=== PATIENT | female | born 1985 | race Caucasian/White ===

== ENCOUNTER 2017-11-18 17:41 | Emergency (ER) | payer OTHER ==
[~2017-11-18] VITALS: Ht 152.4 cm; Wt 58.1 kg
[~2017-11-18 17:41] MED LIST: ACETAMINOPHEN-1 EAC1 PO; ALEVE220 MG PO; BACTRIM DS TAB1 EACH PO; CEPHALEXIN500 MG PO; CLONIDINE HCL0.2 MG PO; ESTRADIOL1 EACH TD; FLOMAX0.4 MG PO; FLUOXETINE HCL20 MG PO; IBUPROFEN800 MG PO; MELATONIN10 M2 PO; NORCO 5-325 TA1 EACH PO; OMEPRAZOLE20 MG PO; PENICILLIN V P500 MG PO; PERCOCET 5-3251 EACH PO; PREMARIN1.25 MG PO; PYRIDIUM200 MG PO; SUBOXONE 8 MG-1 EAC1 SL; ULTRAM50 MG PO; ZOFRAN ODT8 MG PO; ZOFRAN4 MG PO
[2017-11-18] MEDS ORDERED: ACYCLOVIR400 MG PO (18:12)
[2017-11-18] MEDS ORDERED: AUGMENTIN 875-1 EACH PO (18:43)
[2017-11-18] MEDS ORDERED: LIDOCAINE HCL100 ML MT (18:43)
== END 2017-11-18 18:58 | disposition home or self-care (01) ==
LOC: ED 17:41
DX: K13.0 Diseases of lips (principal); K21.9 Gastro-esophageal reflux disease without esophagitis; F17.200 Nicotine dependence, unspecified, uncomplicated; Z88.8 Allergy status to other drugs, medicaments and biological substances; Z79.899 Other long term (current) drug therapy
CPT/HCPCS: 99283

== ENCOUNTER 2018-02-16 17:06 | Emergency (ER) | payer OTHER ==
[~2018-02-16] VITALS: Ht 152.4 cm; Wt 58.1 kg
[~2018-02-16 17:06] MED LIST changes: +ACYCLOVIR400 MG PO; +AUGMENTIN 875-1 EACH PO; +LIDOCAINE HCL100 ML MT
[2018-02-16] MEDS ORDERED: GABAPENTIN300 MG PO (17:33)
[2018-02-16] MEDS ORDERED: SUBOXONE 2 MG-1 EAC2 SL (17:34)
[2018-02-16] MEDS ORDERED: ESTRADIOL1 EAC7 TD (17:34)
[2018-02-16] MEDS ORDERED: LAMOTRIGINE150 MG PO (17:34)
== END 2018-02-16 17:38 | disposition home or self-care (01) ==
LOC: ED 17:06
DX: M79.672 Pain in left foot (principal); W22.8XXA Striking against or struck by other objects, initial encounter

== ENCOUNTER 2019-06-01 07:10 | Emergency (ER) | payer OTHER ==
[~2019-06-01] VITALS: Ht 152.4 cm; Wt 72.6 kg
[~2019-06-01 07:10] MED LIST changes: +ESTRADIOL1 EAC7 TD; +ESTRADIOL1 MG PO; +GABAPENTIN300 MG PO; +LAMOTRIGINE150 MG PO; +PROZAC20 MG PO; +SUBOXONE 2 MG-1 EAC2 SL
--- OUTSIDE RECORDS SUMMARY | 2019-06-01 07:12 | XMS ---
PreManage Notification: JAMES GROSSMAN Security Spout Liner Events No recent Security Events currently on file CRITERIA MET - Group Notification - [facility] - Has Care Guidelines - PDMP - [facility] - 2 Visits in 30 Days CARE PROVIDERS NIKO OLEARY Internal Medicine 03/26/2018-Current PHONE: Unknown Frances has no Care Guidelines for this patient. Care History Medical/Surgical 05/31/2019 [facility] CASE MANAGEMENT REFERRAL MADE- PATIENT HAS [facility] AND NO PCP. ESowmya VISIT COUNT (12 MO.) 3 [facility]. TOTAL 3 NOTE: Visits indicate total known visits. ED/UCC VISIT TRACKING (12 MO.) 06/01/2019 07:10 [facility] TYPE: Emergency COMPLAINT: - WEAKNESS, DIZZINESS 05/28/2019 10:14 [facility] TYPE: Emergency COMPLAINT: - FALLS,LEG NUMBNESS DIAGNOSES: - Allergy status to other drugs, medicaments and biological substances status - Other halfway (current) drug therapy - Gastro-esophageal reflux disease without esophagitis - Nicotine dependence, unspecified, uncomplicated - Weakness - Paresthesia of skin - Personal history of urinary calculi 03/28/2019 02:34 [facility] TYPE: Emergency COMPLAINT: - ABD PAIN,VOMITING DIAGNOSES: - Other psychoactive substance abuse, uncomplicated - Personal history of urinary calculi - Other buttermaker (current) drug therapy - Allergy status to other drugs, medicaments and biological substances status - Noninfective gastroenteritis and colitis, unspecified - Nicotine dependence, unspecified, uncomplicated - Acquired absence of both cervix and uterus - Unspecified abdominal pain INPATIENT VISIT TRACKING (12 MO.) No inpatient visits to display in this time frame [id number]
--- NOTE | 2019-06-01 19:41 | EKG ---
[facility] [address] [place], [place] [address] Signed Sinus bradycardia Otherwise normal ECG No previous ECGs available Confirmed by PEDRO MARTINEZ DO ([id number]) on 06/01/2019 7:41:43 PM Electronically Signed By: PEDRO MARTINEZ DO 06/01/191940 PATIENT NAME: JOHAN VASQUEZJAMESMOJGAN GOULD Electrocardiogram DATE OF : 87 PHYSICIAN: PEDRO MARTINEZ DO REPORT #: [id number] REPORT IS CONFIDENTIAL AND NOT TO BE RELEASED WITHOUT AUTHORIZATION
== END 2019-06-01 09:55 | disposition home or self-care (01) ==
LOC: ED 07:10
DX: R55 Syncope and collapse (principal); F11.23 Opioid dependence with withdrawal; F17.200 Nicotine dependence, unspecified, uncomplicated; Z87.442 Personal history of urinary calculi; Z88.5 Allergy status to narcotic agent; Z88.8 Allergy status to other drugs, medicaments and biological substances; Z79.899 Other long term (current) drug therapy
CPT/HCPCS: 70450; 80053; 81001; 84443; 84703; 85025; 93005; 93010; 96361; 96374; 99284-25; 99406; J1885; J7030

== ENCOUNTER 2019-08-13 13:24 | Emergency (ER) | payer OTHER ==
[~2019-08-13] VITALS: Ht 152.4 cm; Wt 61.2 kg
--- OUTSIDE RECORDS SUMMARY | 2019-08-13 13:28 | XMS ---
PreManage Notification: JAMES GROSSMAN Security Manager Nursing Events No recent Security Events currently on file CRITERIA MET - Group Notification - [facility] - Has Care Guidelines - PDMP CARE PROVIDERS NIKO OLEARY Internal Medicine 03/26/2018-Current PHONE: Unknown Frances has no Care Guidelines for this patient. Care History Medical/Surgical 05/31/2019 [facility] CASE MANAGEMENT REFERRAL MADE- PATIENT HAS E[facility]CCO AND NO PCP. E.DPatricia VISIT COUNT (12 MO.) 4 [facility]. TOTAL 4 NOTE: Visits indicate total known visits. ED/UCC VISIT TRACKING (12 MO.) 08/13/2019 13:27 [facility] TYPE: Emergency COMPLAINT: - HAVE BUMPS THAT NEED CHECKED OUT 06/01/2019 07:10 [facility] TYPE: Emergency COMPLAINT: - WEAKNESS, DIZZINESS DIAGNOSES: - Opioid dependence with withdrawal - Other terminal worker (current) drug therapy - Personal history of urinary calculi - Allergy status to narcotic agent status - Syncope and collapse - Allergy status to oth drug/meds/biol subst status - Nicotine dependence, unspecified, uncomplicated 05/28/2019 10:14 [facility] TYPE: Emergency COMPLAINT: - FALLS,LEG NUMBNESS DIAGNOSES: - Allergy status to oth drug/meds/biol subst status - Other terminal worker (current) drug therapy - Gastro-esophageal reflux disease without esophagitis - Nicotine dependence, unspecified, uncomplicated - Weakness - Paresthesia of skin - Personal history of urinary calculi 03/28/2019 02:[address] [facility] [place] TYPE: Emergency COMPLAINT: - ABD PAIN,VOMITING DIAGNOSES: - Other psychoactive substance abuse, uncomplicated - Personal history of urinary calculi - Other terminal worker (current) drug therapy - Allergy status to oth drug/meds/biol subst status - Noninfective gastroenteritis and colitis, unspecified - Nicotine dependence, unspecified, uncomplicated - Acquired absence of both cervix and uterus - Unspecified abdominal pain INPATIENT VISIT TRACKING (12 MO.) No inpatient visits to display in this time frame [id number]
[2019-08-13] MEDS ORDERED: LIDOCAINE HCL30 M1 MM (14:41)
[2019-08-13] MEDS ORDERED: FAMCICLOVIR250 MG PO (14:41)
== END 2019-08-13 14:47 | disposition home or self-care (01) ==
LOC: ED 13:24
DX: N76.6 Ulceration of vulva (principal); K21.9 Gastro-esophageal reflux disease without esophagitis; F17.200 Nicotine dependence, unspecified, uncomplicated; Z87.442 Personal history of urinary calculi; Z88.8 Allergy status to other drugs, medicaments and biological substances; Z79.899 Other long term (current) drug therapy
CPT/HCPCS: 99283; A9270

== ENCOUNTER 2023-03-29 05:25 | Emergency (ER) | payer OTHER ==
[~2023-03-29] VITALS: Ht 144.8 cm; Wt 81.6 kg
[~2023-03-29 05:25] MED LIST changes: +FAMCICLOVIR250 MG PO; +LIDOCAINE HCL30 M1 MM
--- OUTSIDE RECORDS SUMMARY | 2023-03-29 05:28 | XMS ---
PreManage Notification: JAMES GROSSMAN Security Ham Boner Events No recent Security Events currently on file CRITERIA MET - Group Notification - PDMP CARE PROVIDERS -, [place]- Dentist: Oyster Fisherman [facility] PHONE: [phone] NIKO OLEARY Internal Medicine 03/26/2018-Current PHONE: Unknown Frances has no Care Guidelines for this patient. Care History Medical/Surgical 05/31/2019 [facility] CASE MANAGEMENT REFERRAL MADE- PATIENT HAS E[facility]CCO AND NO PCP. E.D. VISIT COUNT (12 MO.) 1 [facility] TOTAL 1 NOTE: Visits indicate total known visits. ED/UCC VISIT TRACKING (12 MO.) 03/29/2023 05:27 [facility] TYPE: Emergency COMPLAINT: - UTI INPATIENT VISIT TRACKING (12 MO.) No inpatient visits to display in this time frame [id number]
[2023-03-29] MEDS ORDERED: ESTRADIOL1 EAC7 TD (05:43)
[2023-03-29] MEDS ORDERED: BUPRENORPHINE-1 EACH SL (05:43)
[2023-03-29] MEDS ORDERED: BACTRIM DS TAB1 EACH PO (06:35)
[2023-03-29 08:32] VITALS: BP 107/67
--- NOTE | 2023-03-30 13:09 | EKG ---
[facility] [address] [facility] [address] [place], [place] [address] Signed Marked sinus bradycardia Abnormal ECG When compared with ECG of 01-JUN-2019 07:35, No significant change was found Confirmed by TIERA RIVAS MD ([id number]) on 03/30/2023 1:09:21 PM Electronically Signed By: TIERA RIVAS 03/30/23 1309 PATIENT NAME: JOHAN JAMES VASQUEZ Electrocardiogram DATE OF : 87 PHYSICIAN: TIERA RIVAS REPORT #: [id number] REPORT IS CONFIDENTIAL AND NOT TO BE RELEASED WITHOUT AUTHORIZATION
== END 2023-03-29 08:37 | disposition home or self-care (01) ==
LOC: ED 05:25
DX: N39.0 Urinary tract infection, site not specified (principal); F17.200 Nicotine dependence, unspecified, uncomplicated; Z88.8 Allergy status to other drugs, medicaments and biological substances; Z79.899 Other long term (current) drug therapy
CPT/HCPCS: 36415; 80053; 81001; 84703; 85025; 93005; 93010; A9270; J1885; J2405; J7121

== ENCOUNTER 2023-06-01 16:35 | Emergency (ER) | payer OTHER ==
[~2023-06-01] VITALS: Ht 144.8 cm; Wt 86.2 kg
[~2023-06-01 16:35] MED LIST changes: +BUPRENORPHINE-1 EACH SL
--- OUTSIDE RECORDS SUMMARY | 2023-06-01 16:36 | XMS ---
PreManage Notification: JAMES GROSSMAN Security Etiquette Coach Events No recent Security Events currently on file CRITERIA MET - Group Notification - PDMP CARE PROVIDERS NIKO OLEARY Internal Medicine 03/26/2018-Current PHONE: Unknown -, [place]- Dentist: Executive Sales Manager [facility] PHONE: [phone] Frances has no Care Guidelines for this patient. Care History Medical/Surgical 05/31/2019 [facility] CASE MANAGEMENT REFERRAL MADE- PATIENT HAS EOCCO AND NO PCP. E.D. VISIT COUNT (12 MO.) 2 [facility] TOTAL 2 NOTE: Visits indicate total known visits. ED/UCC VISIT TRACKING (12 MO.) 06/01/2023 16:35 [facility] TYPE: Emergency COMPLAINT: - COLD SYMPTOMS 03/29/2023 05:27 [facility] TYPE: Emergency COMPLAINT: - UTI DIAGNOSES: - Allergy status to other drugs, medicaments and biological substances - Dysuria - Nicotine dependence, unspecified, uncomplicated - Other salvage determiner (current) drug therapy - Urinary tract infection, site not specified INPATIENT VISIT TRACKING (12 MO.) No inpatient visits to display in this time frame [id number]
[2023-06-01] MEDS ORDERED: TRAZODONE HCL300 MG PO (16:57)
[2023-06-01 17:57] LABS: INFLUENZA B NAA NEGATIVE (NEGATIVE); RESPIRATORY SYNCYTIAL VIR NAA NEGATIVE (NEGATIVE)
[2023-06-01 18:48] VITALS: BP 124/72
== END 2023-06-01 18:47 | disposition home or self-care (01) ==
LOC: ED 16:35
PROVIDERS: Emergency Medicine
DX: J06.9 Acute upper respiratory infection, unspecified (principal); F17.200 Nicotine dependence, unspecified, uncomplicated; Z88.8 Allergy status to other drugs, medicaments and biological substances; Z79.899 Other long term (current) drug therapy; Z20.822 Contact with and (suspected) exposure to COVID-19
CPT/HCPCS: 87502; 99283; C9803; U0002

== ENCOUNTER 2024-03-10 10:03 | Emergency (ER) | payer OTHER ==
[~2024-03-10] VITALS: Ht 144.8 cm; Wt 85.0 kg
[~2024-03-10 10:03] MED LIST changes: +PREDNISONE20 MG PO; +TRAZODONE HCL300 MG PO; +VENTOLIN HFA18 GM INH
--- OUTSIDE RECORDS SUMMARY | 2024-03-10 10:04 | XMS ---
PreManage Notification: JAMES GROSSMAN Security Big Data Platform Architect Events No recent Security Events currently on file CRITERIA MET - Group Notification CARE PROVIDERS NIKO OLEARY Internal Medicine 03/26/2018-Current PHONE: Unknown -, [facility] Dentist: Flue Gas Analyst [facility] PHONE: [phone] -[place]- Dentist: Flue Gas Analyst [facility] PHONE: [phone] [facility] Current \F\ [facility] PHONE: [phone] Frances has no Care Guidelines for this patient. Care History Medical/Surgical 05/31/2019 [facility] CASE MANAGEMENT REFERRAL MADE- PATIENT HAS EOCCO AND NO PCP. [facility] NOTE: Visits indicate total known visits. ED/UCC VISIT TRACKING (12 MO.) [facility] COMPLAINT: - CHEST PAIN 09/18/2023 10:15 [facility] TYPE: Emergency COMPLAINT: - CHEST PAIN DIAGNOSES: - Allergy status to other drugs, medicaments and biological substances - Gastro-esophageal reflux disease without esophagitis - Nicotine dependence, unspecified, uncomplicated - Precordial pain - Wheezing 06/01/2023 16:35 [facility] TYPE: Emergency COMPLAINT: - COLD SYMPTOMS DIAGNOSES: - Acute upper respiratory infection, unspecified - Allergy status to other drugs, medicaments and biological substances - Contact with and (suspected) exposure to COVID-19 - Cough, unspecified - Nicotine dependence, unspecified, uncomplicated - Other local intermodal truck driver (current) drug therapy 03/29/2023 05:27 [facility] TYPE: Emergency COMPLAINT: - UTI DIAGNOSES: - Allergy status to other drugs, medicaments and biological substances - Dysuria - Nicotine dependence, unspecified, uncomplicated - Other halfway (current) drug therapy - Urinary tract infection, site not specified INPATIENT VISIT TRACKING (12 MO.) No inpatient visits to display in this time frame [id number]
[2024-03-10] MEDS ORDERED: METHADOSE40 MG PO (10:15)
[2024-03-10] MEDS ORDERED: KETOROLAC TROMETHAMINE 30 MG/ML VIAL IV ONE (10:30)
[2024-03-10 10:50] LABS: BASOPHILS 0.7 % (0-2); EOSINOPHILS 1.7 % (0-6); HEMATOCRIT 41.1 % (35.0-50.0); HEMOGLOBIN 13.5 g/dL (12.0-18.0); LYMPHOCYTES 39.8 % (24-44); MCH 29.9 (27-36); MCHC 32.9 g/dl (30-36); MONOCYTES 3.3 % (0-12); NEUTROPHILS 54.5 % (39-80); PLATELET COUNT 173 K/uL (140-440); RBC 4.52 M/ul (4.3-5.7)
[2024-03-10 11:09] LABS: ALBUMIN 3.5 g/dL (3.4-5.0); ALBUMIN/GLOBULIN RATIO 0.95 (1.1-2.4); ANION GAP 13.7 (7-21); BILIRUBIN, TOTAL 0.4 ng/dL (0.2-1.0); BUN/CREATININE RATIO 9.87 (6.0-28.6); CALCIUM 8.5 mg/dL (8.5-10.1); CREATININE, SERUM 0.81 mg/dL (0.55-1.02); POTASSIUM 3.7 mmol/L (3.5-5.1); PROTEIN, TOTAL 7.2 g/dL (6.4-8.2)
[2024-03-10 12:00] VITALS: BP 131/75
--- NOTE | 2024-03-10 21:54 | EKG ---
[facility] [address] [place] [address] Signed Normal sinus rhythm Prolonged QT Abnormal ECG When compared with ECG of 18-SEP-2023 10:21, Vent. rate has increased BY 39 BPM QT has lengthened Confirmed by Yumiko Luis MD () on 03/10/2024 9:54:38 PM Electronically Signed By: YUMIKO LUIS MD 03/10/24 2154 PATIENT NAME: JAMES GROSSMAN Electrocardiogram DATE OF : 87 PHYSICIAN: YUMIKO LUIS MD REPORT #: [id number] REPORT IS CONFIDENTIAL AND NOT TO BE RELEASED WITHOUT AUTHORIZATION
== END 2024-03-10 12:01 | disposition home or self-care (01) ==
LOC: ED 10:03
PROVIDERS: Emergency Medicine
DX: R07.89 Other chest pain (principal); F17.200 Nicotine dependence, unspecified, uncomplicated; Z88.8 Allergy status to other drugs, medicaments and biological substances; Z79.899 Other long term (current) drug therapy
CPT/HCPCS: 36415; 71045; 80053; 84484; 85025; 85379; 93005; 93010; J1885